=== PATIENT | male | born 1990 | race Caucasian/White ===

== ENCOUNTER 2021-03-11 18:12 | Emergency (ER) | payer SELFPAY ==
[2021-03-11] MEDS ORDERED: MOTRIN 600 MG PO ONE (19:27)
--- NOTE | 2021-03-11 19:27 | ERPHSYRPT ---
- History of Present Illness Time Seen by Provider: 03/11/21 18:25 Source: patient Exam Limitations: no limitations Patient Subjective Stated Complaint: PT states "I smashed my finger between a hitch and a cynder block." Triage Nursing Assessment: PT presented alert and oriented X 3, skin pwd Pt ring finger on his left hand is bruised and swollen tender to touch. Physician History: Patient is a 22-year-old male presents to our ED with pain at the distal phalanx of the left fourth digit. Patient was at work and smashed his finger between a hitch and a cylinder block. No other injuries reported. Incident occurred just prior to arrival. Pain described as an ache that is well localized. No radiation. Patient has a subungual hematoma. The area of involvement is swollen and tender. No open or draining lesions. No lacerations. No degloving injuries. Extremities neurovascular intact distally. Compartments are soft. Cap refill less than 2 seconds. Radial pulse palpable. Patient otherwise healthy. He voices no other complaints concerns this time. Timing/Duration: today Severity: mild Modifying Factors: Improves With: movement Associated Symptoms: denies symptoms Allergies/Adverse Reactions: chocolate flavor Allergy (Severe, Verified 03/11/21 18:25) Hives Home Medications: No Reportable Medications [No Reported Medications] 03/11/21 [History] Hx Tetanus, Diphtheria Vaccination/Date Given: No Hx Influenza Vaccination/Date Given: No Hx Pneumococcal Vaccination/Date Given: No Immunizations Up to Date: Yes Travel Risk - International Travel Have you traveled outside of the country in past 3 weeks: No - Coronavirus Screening Are you exhibiting any of the following symptoms?: No Close contact with a COVID-19 positive Pt in past 14-21 Days: No - Vaccine Status Have you recieved a Covid-19 vaccination: No - Review of Systems Constitutional: No Symptoms, No Fever, No Chills Eyes: No Symptoms Ears, Nose, & Throat: No Symptoms Respiratory: No Symptoms, No Cough, No Dyspnea Cardiac: No Symptoms, No Chest Pain, No Edema, No Syncope Abdominal/Gastrointestinal: No Symptoms, No Abdominal Pain, No Nausea, No Vomiting, No Diarrhea Genitourinary Symptoms: No Symptoms, No Dysuria Musculoskeletal: No Symptoms, No Back Pain, No Neck Pain Skin: No Symptoms, No Rash Neurological: No Symptoms, No Dizziness, No Focal Weakness, No Sensory Changes Psychological: No Symptoms Endocrine: No Symptoms Hematologic/Lymphatic: No Symptoms Immunological/Allergic: No Symptoms All Other Systems: Reviewed and Negative - Past Medical History Pertinent Past Medical History: No - Past Surgical History Past Surgical History: Yes Other Surgical History: left ankle - Social History Smoking Status: Never smoker Exposure to second hand smoke: No Drug Use: none Patient Lives Alone: No - Nursing Vital Signs Nursing Vital Signs: Initial Vital Signs Temperature 97.8 F 03/11/21 18:19 Pulse Rate 65 03/11/21 18:19 Respiratory Rate 20 03/11/21 18:19 Blood Pressure 118/67 03/11/21 18:19 O2 Sat by Pulse Oximetry 98 03/11/21 18:19 Pain Scale Pain Intensity 6 - Physical Exam General Appearance: no apparent distress, alert Eye Exam: PERRL/EOMI, eyes nml inspection Ears, Nose, Throat Exam: normal ENT inspection, TMs normal, pharynx normal, moist mucous membranes Neck Exam: normal inspection, non-tender, supple, full range of motion Respiratory Exam: normal breath sounds, lungs clear, airway intact, No respiratory distress Cardiovascular Exam: regular rate/rhythm, normal heart sounds, normal peripheral pulses Gastrointestinal/Abdomen Exam: soft, normal bowel sounds, No tenderness, No mass Back Exam: normal inspection, normal range of motion, No CVA tenderness, No vertebral tenderness Extremity Exam: normal inspection, normal range of motion, pelvis stable Neurologic Exam: alert, oriented x 3, cooperative, normal mood/affect, nml cerebellar function, nml station & gait, sensation nml, No motor deficits Skin Exam: normal color, warm, dry, No rash Lymphatic Exam: No adenopathy SpO2 Interpretation: normal SpO2: 98 O2 Delivery: Room Air Procedures - Nail Trephination Time of Procedure: 20:00 Nail Trephination Location: left, 4 digit. Method of Drainage: nail cauterized Sterile Dressing Applied: Yes Finger Splint: Yes Progress: Electrocautery procedure performed. Patient tolerated procedure well. Procedure was performed under sterile conditions. Involved digit was neurovascular intact distally before and after procedure. Patient placed in a splint for comfort. - Course Nursing assessment & vital signs reviewed: Yes - Radiology Exams Hand X-ray Interpretation: Interpreted by me (Injury to left fourth digit, distal phalanx. No fracture or dislocation. Mild soft tissue swelling at fingertip.) Ordered Tests: Active Orders 24 hr Category Date Time Status HAND (MINIMUM 3 VIEWS) Stat Exams 03/11/21 Taken Medication Summary Discontinued Medications Generic Name Dose Route Start Last Admin Trade Name Gil PRN Reason Stop Dose Admin Ibuprofen 600 mg 03/11/21 19:27 03/11/21 19:29 Ibuprofen 600 Mg Tablet PO 03/11/21 19:28 600 mg STAT ONE Administration Ibuprofen Confirm 03/11/21 19:28 Ibuprofen 600 Mg Tablet Administered 03/11/21 19:29 Dose 600 mg .ROUTE .STK-MED ONE - Progress Progress: improved Progress Note: Patient reassessed. He feels well. Pain significantly improved. Nail was trephinated. No complications. Patient tolerated procedure well. Pain significantly improved after trephination procedure performed. Splint applied. Patient neurovascular tact distally post procedure. No indication for antibiotics at this time. We will refer patient to orthopedic surgery for further evaluation and treatment. Plan of care discussed with patient. He agrees to follow-up as discussed. He voices no other complaints or concerns at this time. Patient extubated for discharge. No dictation for further work-up at this time. Portions of this note were created with voice recognition technology. There may be grammatical, spelling, punctuation or sound alike errors 03/11/21 20:02 Counseled pt/family regarding: diagnosis, need for follow-up, rad results - Departure Departure Disposition: Home Clinical Impression: Subungual hematoma of finger, Finger contusion Condition: Stable Critical Care Time: No Referrals: ARCHIE MCKEON [Primary Care Provider] - Follow up/PCP as directed Additional Instructions: Discharge/Care Plan HAY RODRIGUEZ was seen on 03/11/21 in the Emergency Room. The patient was counseled regarding Diagnosis,Lab results, Imaging studies, need for follow up and when to return to the Emergency Room. Prescriptions given: Discharge Note I have spoken with the patient and/or caregivers. I have explained the patient's condition, diagnosis and treatment plan based on the information available to me at this time. I have answered the patient's and/or caregiver's questions and addressed any concerns. The patient and/or caregivers have as good understanding of the patient's diagnosis, condition and treatment plan as can be expected at this point. The vital signs have been stable. The patient's condition is stable and appropriate for discharge from the emergency department. The patient will pursue further outpatient evaluation with the primary care physician or other designated or consulting physician as outlined in the discharge instructions. The patient and/or caregivers are agreeable to this plan of care and follow-up instructions have been explained in detail. The patient and/or caregivers have received these instruction. The patient/and or caregivers are aware that any significant change in condition or worsening of symptoms should prompt an immediate return to this or the closest emergency department or call 911. Outpatient Orders: Ortho Referral Time Frame: 1 Day, Facility: [facility]. [facility], Location: [facility]
[2021-03-11] MEDS ORDERED: MOTRIN 600 MG ONE (19:28)
[2021-03-11 20:05] VITALS: BP 109/75; PULSE 67
[2021-03-11 20:06] VITALS: O2SAT 98
--- NOTE | 2021-03-12 09:24 | XRAY ---
Indication: 4th finger injury. Comparison: None 3 view left hand obtained. No bony, articular, or soft tissue abnormalities.
== END 2021-03-11 20:20 | disposition home or self-care (01) ==
LOC: ED 18:12
DX: S60.142A Contusion of left ring finger with damage to nail, initial encounter (principal); W23.0XXA Caught, crushed, jammed, or pinched between moving objects, initial encounter; Y99.0 Civilian activity done for income or pay
CPT/HCPCS: 11740; 73130; 99284; A9270-GY